=== PATIENT | male | born 1975 | race Caucasian/White ===

== ENCOUNTER → 2016-07-19 | Outpatient (CLI) | payer OTHER ==
[~2016-07-19] MED LIST: FENOFIBRATE160 MG PO; FISH OIL 1,0001 EACH PO; GLUCOPHAGE 500500 MG PO; LANTUS100 UNIT/1 SQ; LEVEMIR FL100 UNIT/1 SQ; MYCOLOG II CREA15 GM EXT; NAPROXEN 250 M250 MG PO; NESINA25 MG PO; ULORIC80 MG PO
== END ==
LOC: KOH-I 11:04
DX: S29.011A Strain of muscle and tendon of front wall of thorax, initial encounter (principal); R91.8 Other nonspecific abnormal finding of lung field
CPT/HCPCS: 71020

== ENCOUNTER → 2016-08-16 | Outpatient (CLI) | payer OTHER | LOC: KOH-I 10:24 | DX: R91.8 Other nonspecific abnormal finding of lung field (principal); M10.041 Idiopathic gout, right hand; M10.042 Idiopathic gout, left hand | CPT/HCPCS: 71020 ==

== ENCOUNTER → 2020-05-22 | Outpatient (CLI) | payer MEDICARE ==
[~2020-05-22] MED LIST changes: +ANUSOL HC SUPP1 SUPP PR; +APIDRA SOL100 UNIT/1 SQ; +BASAGLAR K100 UNIT/1 SQ; +COLCHICINE 0.60.6 MG PO; +COLCHICINE0.6 M1 PO; +METOPROLOL TART25 MG PO; +NORCO 5-325 TA1 EACH PO; +PREDNISONE20 MG PO; +VICTOZA 3-0.6 MG/0.1 SQ
[2020-05-22 09:01] LABS: HEMOGLOBIN 15.6 gm/dl (14.0-17.5); RED BLOOD COUNT 5.35 M/UL (4.20-5.50); WHITE BLOOD COUNT 10.6 K/UL (4.5-11.0)
[2020-05-22 09:24] LABS: BUN/CREATININE RATIO 27 (0-10)
[2020-05-29 10:10] LABS: CHOLESTEROL, TOTAL 258 mg/dL (100-199); HDL-C 24 mg/dL (>39); HDL-P (TOTAL) 25.1 umol/L (>=30.5); LARGE HDL-P 2.7 umol/L (>=4.8); LARGE VLDL-P >50.0 nmol/L (<=2.7); LDL SIZE 19.6 nm (>20.5); LDL SIZE 19.6 nm (>=20.8); LDL-P 1127 nmol/L (<1000); LP-IR SCORE 92 (<=45); SMALL LDL-P 882 nmol/L (<=527); TRIGLYCERIDES 1371 mg/dL (0-149); VLDL SIZE 77.9 nm (<=46.6)
== END ==
LOC: LAB 08:00
PROVIDERS: Emergency Medicine
DX: E11.65 Type 2 diabetes mellitus with hyperglycemia (principal); E11.22 Type 2 diabetes mellitus with diabetic chronic kidney disease; I12.9 Hypertensive chronic kidney disease with stage 1 through stage 4 chronic kidney disease, or unspecified chronic kidney disease; N18.2 Chronic kidney disease, stage 2 (mild); M10.041 Idiopathic gout, right hand; E78.2 Mixed hyperlipidemia
CPT/HCPCS: 36415; 80053; 80061; 82043; 82570; 83036; 83704; 84443; 84550; 85025

== ENCOUNTER → 2020-09-12 | Outpatient (CLI) | payer MEDICARE | LOC: LAB 07:07 | PROVIDERS: Emergency Medicine | DX: E11.69 Type 2 diabetes mellitus with other specified complication (principal); E78.2 Mixed hyperlipidemia; N18.2 Chronic kidney disease, stage 2 (mild); M10.09 Idiopathic gout, multiple sites | CPT/HCPCS: 36415; 80053; 83036; 84550 ==

== ENCOUNTER → 2021-05-14 | Outpatient (CLI) | payer MEDICARE, OTHER ==
[2021-05-14 11:32] LABS: RED BLOOD COUNT 4.85 M/UL (4.20-5.50); WHITE BLOOD COUNT 10.5 K/UL (4.5-11.0)
[2021-05-14 12:17] LABS: BUN/CREATININE RATIO 18 (0-10)
[2021-05-15 11:18] LABS: CREATININE, URINE 104.5 mg/dL (Not Estab.)
[2021-05-16 11:17] LABS: CHOLESTEROL, TOTAL 196 mg/dL (100-199); HDL SIZE 8.3 nm (>=9.2); HDL-C 31 mg/dL (>39); HDL-P (TOTAL) 25.4 umol/L (>=30.5); LARGE HDL-P <1.3 umol/L (>=4.8); LARGE VLDL-P 15.8 nmol/L (<=2.7); LDL SIZE 20.3 nm (>20.5); LDL SIZE 20.3 nm (>=20.8); LDL-C 118 mg/dL (0-99); LDL-P 1528 nmol/L (<1000); LP-IR SCORE 89 (<=45); SMALL LDL-P 895 nmol/L (<=527); TRIGLYCERIDES 269 mg/dL (0-149); VLDL SIZE 56.5 nm (<=46.6)
== END ==
LOC: LAB 10:58
PROVIDERS: Emergency Medicine
DX: E11.65 Type 2 diabetes mellitus with hyperglycemia (principal); I12.9 Hypertensive chronic kidney disease with stage 1 through stage 4 chronic kidney disease, or unspecified chronic kidney disease; E11.22 Type 2 diabetes mellitus with diabetic chronic kidney disease; N18.2 Chronic kidney disease, stage 2 (mild)
CPT/HCPCS: 36415; 80053; 80061; 82043; 82570; 83036; 83704; 84443; 84550; 85025

== ENCOUNTER → 2021-08-07 | Outpatient (CLI) | payer MEDICARE ==
[2021-08-08 08:14] LABS: FSH 5.7 mIU/mL (1.5-12.4); LUTEINIZING HORMONE(LH) 6.3 mIU/mL (1.7-8.6); PROLACTIN 7.2 ng/mL (4.0-15.2)
[2021-08-09 22:07] LABS: TESTOSTERONE, SERUM 271 ng/dL (264-916)
== END ==
LOC: LAB 11:55
PROVIDERS: Nurse Practitioner Family
DX: R39.12 Poor urinary stream (principal); N39.8 Other specified disorders of urinary system; N42.9 Disorder of prostate, unspecified; N52.9 Male erectile dysfunction, unspecified
CPT/HCPCS: 36415; 83001; 83002; 84146; 84153; 84402; 84403

== ENCOUNTER → 2021-10-11 | Outpatient (CLI) | payer MEDICARE ==
[2021-10-11 13:33] LABS: BUN/CREATININE RATIO 19 (0-10)
[2021-10-12 15:12] LABS: CHOLESTEROL, TOTAL 164 mg/dL (100-199); HDL SIZE 8.4 nm (>=9.2); HDL-C 30 mg/dL (>39); HDL-P (TOTAL) 26.6 umol/L (>=30.5); LARGE HDL-P 2.6 umol/L (>=4.8); LARGE VLDL-P 16.7 nmol/L (<=2.7); LDL SIZE 20.4 nm (>20.5); LDL SIZE 20.4 nm (>=20.8); LDL-C 93 mg/dL (0-99); LDL-P 1089 nmol/L (<1000); LP-IR SCORE 90 (<=45); SMALL LDL-P 574 nmol/L (<=527); TRIGLYCERIDES 238 mg/dL (0-149); VLDL SIZE 59.4 nm (<=46.6)
== END ==
LOC: LAB 11:17
PROVIDERS: Emergency Medicine
DX: I10 Essential (primary) hypertension (principal); M10.09 Idiopathic gout, multiple sites; E11.42 Type 2 diabetes mellitus with diabetic polyneuropathy; E78.2 Mixed hyperlipidemia
CPT/HCPCS: 36415; 80053; 80061; 83036; 83704; 84550